=== PATIENT | male | born 1990 | race Caucasian/White ===

== ENCOUNTER 2024-04-29 20:12 | Emergency (ER) | payer BC ==
[~2024-04-29] VITALS: Ht 182.8 cm; Wt 73.5 kg
[~2024-04-29 20:12] MED LIST: MOTRIN800 MG PO
[2024-04-29] MEDS ORDERED: PERCOCET 10-321 EACH PO (20:28)
[2024-04-29] MEDS ORDERED: Ondansetron Hydrochloride 4 MG TAB SL ONE (20:45)
[2024-04-29] MEDS ORDERED: Acetaminophen/Oxycodone 5 MG/325 MG TABLET PO ONE (20:50)
== END 2024-04-29 21:00 | disposition home or self-care (01) ==
LOC: ED 20:12
DX: G89.29 Other chronic pain (principal); N50.812 Left testicular pain; Z88.2 Allergy status to sulfonamides; Z79.899 Other long term (current) drug therapy